=== PATIENT | female | born 2000 | race Caucasian/White ===

== ENCOUNTER → 2023-08-21 10:42 | Outpatient (REF) | payer OTHER, SELFPAY ==
[2023-08-22 15:51] LABS: Mumps Virus IgG Positive; Rubeola (Measles) IgG Positive; Varicella Zoster IgG (VZV) Positive
[2023-08-22 19:18] LABS: Hepatitis B Surface Antibody Negative
[2023-08-22 20:22] LABS: Rubella Negative
[2023-08-23 23:02] LABS: Quantiferon Mitogen minus NIL 9.97 IU/mL; Quantiferon NIL 0.03 IU/mL; Quantiferon Plus TB1 minus NIL 0.02 IU/mL (<=0.34); Quantiferon Plus TB2 minus NIL 0.01 IU/mL (<=0.34); Quantiferon TB Gold Plus Negative (Negative)
== END ==
LOC: OHS 10:42
PROVIDERS: ATTENDING PHYSICIAN Nurse Practitioner Family
DX: Z23 Encounter for immunization (principal)
CPT/HCPCS: 36415; 86480; 86706; 86735; 86762; 86765; 86787